=== PATIENT | male | born 1960 | race Asian ===

== ENCOUNTER → 2019-01-18 | Day surgery (SDC) | payer BC ==
[~2019-01-18] MED LIST: Dextrose 5%-0.45% NaCl 1,000 ML IV SCH; Midazolam 1 MG/ML 2 ML SDV IV ONE; Midazolam 1 MG/ML 2 ML SDV ONE; Sodium Chloride 0.9% 10 ML Syringe FLUSH PRN; fentaNYL 100 MCG/2 ML SDV IV ONE; fentaNYL 100 MCG/2 ML SDV ONE
--- NOTE | 2019-01-18 09:27 | OR ---
DATE: 01/18/2019 PROCEDURES: Esophagogastroduodenoscopy and multiple pinch biopsies. INSTRUMENT USED: GIF-HQ190 Olympus video panendoscope. PREMEDICATIONS: No oral or topical anesthesia used. Fentanyl 100 mcg intravenous, Versed 2 mg intravenous, nasal O2 cannula. The procedure was done under pulse oximetry, BP recording, and color television console monitor. INDICATION: The patient with persistent longstanding heartburn, dyspepsia, and upper abdominal pain, unexplained and not responsive to medical measures, on PPI. Esophagogastroduodenoscopy is performed for detection of any active erosive lesions, Ribeiro esophagus and/or malignancy also under consideration, H. Pylori status to be determined, endoscopic hemostasis therapy if needed. PROCEDURE IN DETAIL: The scope was passed with ease. Adequate visualization of the esophagus was made from proximal to distal areas. No upper esophageal lesions identified. No distal esophageal stricture. No uphill or downhill esophageal varices. No Maye-[place] tear. No evidence of erosive esophagitis by [place] criteria. No esophageal polyp or tumor mass identified. Z-line was seen at around 40 cm distal to the oral verge, configuration consistent with grade 1 by ZAP classification. No proximal gastric varices noted. Gastric fundus examination by retroflexion showed no malignant lesions. Diminutive benign-appearing gastric fundus polyps were noted. No gastric ulcer, malignant mass, or vascular ectasia identified. Duodenal bulb showed no ulcer. Visualized second part of the duodenum was unremarkable. Multiple pinch biopsies were taken from the gastric antrum and proximal body and sent for PyloriTek test for H. pylori, and if negative in an hour, the tissue is to be sent for histopathology. No bleeding was noted from any of the visualized areas at the completion of the examination. Photographs were taken of the duodenal bulb, gastric antrum, fundus, and distal esophagus. IMPRESSION: Diminutive gastric fundus polyps. The patient tolerated the procedure well. [facility] /[id number]
[2019-01-18 10:44] VITALS: BP 130/107; PULSE 79
== END ==
LOC: DL.ENDO 07:22
PROVIDERS: ATTEND Internal Medicine Gastroenterology
DX: K29.70 Gastritis, unspecified, without bleeding (principal); K31.7 Polyp of stomach and duodenum; K21.9 Gastro-esophageal reflux disease without esophagitis; I10 Essential (primary) hypertension; E78.5 Hyperlipidemia, unspecified; G47.33 Obstructive sleep apnea (adult) (pediatric); Z79.82 Long term (current) use of aspirin; Z79.899 Other long term (current) drug therapy
CPT/HCPCS: 43239; 87077; J2250; J3010; J7042

== ENCOUNTER 2019-02-11 07:31 | Day surgery (SDC) | payer BC ==
[~2019-02-11 07:31] MED LIST changes: -Dextrose 5%-0.45% NaCl 1,000 ML IV SCH; -Midazolam 1 MG/ML 2 ML SDV IV ONE; -Sodium Chloride 0.9% 10 ML Syringe FLUSH PRN; -fentaNYL 100 MCG/2 ML SDV IV ONE
[2019-02-11] MEDS ORDERED: Midazolam 1 MG/ML 2 ML SDV IV ONE ×5 (07:32→08:37)
[2019-02-11] MEDS ORDERED: fentaNYL 100 MCG/2 ML SDV IV ONE ×3 (07:32→08:33)
[2019-02-11] MEDS ORDERED: Dextrose 5%-0.45% NaCl 1,000 ML IV SCH (08:00)
[2019-02-11 10:41] VITALS: BP 120/82; PULSE 78
--- NOTE | 2019-02-11 13:49 | OR ---
DATE: 02/11/2019 PROCEDURE: Total colonoscopy. INSTRUMENT USED: PCF-H190DL Olympus video colonoscope. PREMEDICATIONS: Fentanyl 100 mcg intravenous, Versed 3 mg intravenous, nasal O2 cannula. The procedure was done under pulse oximetry, BP recording, and cardiac rehabilitation program director. INDICATION: The patient with abdominal pain and abnormal CT, suspected colonic lesions. Colonoscopic examination is done for detection of any polypoid lesions and removal, endoscopic hemostasis therapy if needed. PROCEDURE IN DETAIL: Initial rectal exam was unremarkable. Rigid anoscopy was normal. The colonoscope was passed with ease up to the ileocecal area. Photographs were taken of the normal-appearing cecum, identified by landmarks of appendiceal orifice and double-bulged ileocecal folds. No bleeding was noted from any of the visualized areas at the commencement of the examination. The bowel preparation was found to be adequate, [place] scale 3 in all the regions. No stricture. No vascular ectasia. No large isolated ulcerations seen. No evidence of diffuse inflammatory bowel disease in the form of friability, contact bleeding, or ulcerations. No polyp or tumor mass identified. Probing the proximal sides of folds and flexures using adequate distention and clearing up the stool material, withdrawal of the scope was made. Cecum to rectum time over 6 minutes. No bleeding was noted from any of the visualized areas at the completion of examination. IMPRESSION: Normal study. The patient tolerated the procedure well. [facility] /[id number]
== END 2019-02-11 10:45 | disposition home or self-care (01) ==
LOC: DL.ENDO 07:31
PROVIDERS: ATTEND Internal Medicine Gastroenterology
DX: R10.9 Unspecified abdominal pain (principal); I10 Essential (primary) hypertension; E78.5 Hyperlipidemia, unspecified; G47.33 Obstructive sleep apnea (adult) (pediatric); Z99.89 Dependence on other enabling machines and devices; Z79.899 Other long term (current) drug therapy; Z79.82 Long term (current) use of aspirin
CPT/HCPCS: 45378; J2250; J3010; J7042; G0121

== ENCOUNTER 2020-03-11 00:01 | Emergency (ER) | payer BC ==
[2020-03-11] MEDS ORDERED: Dexamethasone 4 MG/ML SDV IVPUSH ONE (00:06)
--- NOTE | 2020-03-11 00:09 | EDM.PDOC ---
ED HPI GENERAL MEDICAL PROBLEM - General Chief Complaint: Respiratory Problem Stated Complaint: SHORTNESS OF BREATH, COVID+ Feb Time Seen by Provider: 03/11/20 00:09 Source of Information: Reports: Patient History Limitations: Reports: No Limitations - History of Present Illness INITIAL COMMENTS - FREE TEXT/NARRATIVE: pos covid , been coughing on-off, got robitussin today and did help cough a little. but still has chest discomfort. - Related Data Allergies Allergy/AdvReac Type Severity Reaction Status Date / Time seasonal Allergy Sneezing Uncoded 03/11/20 00:12 Home Meds: Home Meds Losartan Potassium 50 mg PO DAILY 05/05/16 [History] Ascorbate Calcium [Vitamin C] 500 mg PO DAILY 01/14/19 [History] Aspirin [Halfprin] 81 mg PO DAILY 01/14/19 [History] Fish Oil/[place]-3 Fatty Acids [Fish Oil 1,000 MG] 1 each PO DAILY 01/14/19 [History] Montelukast [Singulair] 10 mg PO DAILY 01/14/19 [History] Omeprazole 20 mg PO BID 01/14/19 [History] Simvastatin [Zocor] 40 mg PO BEDTIME 01/14/19 [History] Terbinafine [LamISIL] 250 mg PO DAILY 01/14/19 [History] Ascorbic Acid [Vitamin C] 500 mg PO ASDIRECTED PRN 02/10/19 [History] Past Medical History HEENT History: Reports: Allergic Rhinitis Cardiovascular History: Reports: High Cholesterol, Hypertension Respiratory History: Reports: Sleep Apnea Gastrointestinal History: Genitourinary History: Reports: None Musculoskeletal History: Reports: Other (See Below) Other Musculoskeletal History: lateral epicondylitis of right elbow. degenerative disc disease, lumbar. herniated nucleus pulposus, lumbar Neurological History: Reports: None Psychiatric History: Reports: None Endocrine/Metabolic History: Reports: None Hematologic History: Reports: None Immunologic History: Reports: None Oncologic (Cancer) History: Reports: None Dermatologic History: Reports: None - Infectious Disease History Infectious Disease History: Reports: None - Past Surgical History Head Surgeries/Procedures: Reports: None HEENT Surgical History: Reports: None Respiratory Surgical History: Reports: None GI Surgical History: Reports: Colonoscopy Endocrine Surgical History: Reports: None Neurological Surgical History: Reports: Laminectomy, Lumbar Spine Musculoskeletal Surgical History: Reports: Carpal Tunnel, Ganglion Cyst, Other (See Below) Other Musculoskeletal Surgeries/Procedures:: spine lumbar laminectomy - L4/5 for decompression for 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 left carpal tunnel release. joint injection/aspiration. cyst removal. electromyography of extremities Dermatological Surgical History: Reports: None Social & Family History - Family History Family Medical History: Noncontributory - Caffeine Use Caffeine Use: Reports: Coffee Caffeine Use Comment: 2 CUPS DAILY ED ROS GENERAL - Review of Systems Review Of Systems: Comprehensive ROS is negative, except as noted in HPI. ED EXAM, GENERAL - Physical Exam Exam: See Below Exam Limited By: No Limitations General Appearance: Alert, WD/WN, Mild Distress, Other (discomfort) Ears: Hearing Grossly Normal Throat/Mouth: Normal Voice, No Airway Compromise Head: Atraumatic Neck: Non-Tender, Full Range of Motion Respiratory/Chest: Rhonchi Cardiovascular: Regular Rate, Rhythm GI/Abdominal: Soft, Non-Tender (Male) Exam: Deferred Rectal (Males) Exam: Deferred Neurological: Alert, Oriented, Normal Cognition, Normal Gait, No Motor/Sensory Deficits Psychiatric: Normal Affect, Normal Mood Skin Exam: Warm, Dry, Normal Color Lymphatic: No Adenopathy Course - Vital Signs Last Recorded V/S: Last Vital Signs Temp 36.9 C 03/11/20 00:11 Pulse 98 03/11/20 00:11 Resp 18 03/11/20 00:11 BP 161/93 H 03/11/20 00:11 Pulse Ox 95 03/11/20 00:11 - Orders/Labs/Meds Orders: Active Orders 24 hr Category Date Time Status Sodium Chloride 0.9% [Normal Saline] 1,000 ml Med 03/11/20 00:15 Active IV ASDIRECTED Medication Orders Sodium Chloride (Normal Saline) 1,000 mls @ 150 mls/hr IV ASDIRECTED MARY KAY Last Admin: 03/11/20 00:40 Dose: 150 mls/hr Documented by: LAURA Labs: Laboratory Tests 03/11/20 03/11/20 03/11/20 Range/Units 00:20 00:20 00:20 WBC 5.0 (5.0-10.0) 10^3/uL RBC 4.66 (4.6-6.2) 10^6/uL Hgb 14.3 (14.0-18.0) g/dL Hct 39.8 L (40.0-54.0) % MCV 85.4 (80-100) fL MCH 30.7 (27.0-34.0) pg MCHC 35.9 H (33.0-35.0) g/dL Plt Count 121 L (150-450) 10^3/uL Neut % (Auto) 58.4 (42.2-75.2) % Lymph % (Auto) 23.9 (20.5-50.1) % [place] % (Auto) 17.1 H (2-8) % Eos % (Auto) 0.4 L (1.0-3.0) % Baso % (Auto) 0.2 (0.0-1.0) % Sodium 136 (136-145) mmol/L Potassium 3.4 L (3.5-5.1) mmol/L Chloride 99 (98-107) mmol/L Carbon Dioxide 27 (21-32) mmol/L Anion Gap 13.4 H (7-13) mEq/L BUN 9 (7-18) mg/dL Creatinine 0.62 L (0.70-1.30) mg/dL Est Cr Clr Drug Dosing 122.90 mL/min Estimated GFR (MDRD) > 60 BUN/Creatinine Ratio 14.5 (No establ ref range) Glucose 113 H (74-99) mg/dL Lactic Acid 0.5 (0.4-2.0) mmol/L Calcium 8.1 L (8.5-10.1) mg/dL Total Bilirubin 0.6 (0.2-1.0) mg/dL AST 25 (15-37) U/L ALT 35 (16-63) U/L Alkaline Phosphatase 67 (46-116) U/L Troponin I (0.000-0.056) ng/mL Total Protein 6.8 (6.4-8.2) g/dL Albumin 3.5 (3.4-5.0) g/dL Globulin 3.3 Albumin/Globulin Ratio 1.1 03/11/20 Range/Units 00:20 WBC (5.0-10.0) 10^3/uL RBC (4.6-6.2) 10^6/uL Hgb (14.0-18.0) g/dL Hct (40.0-54.0) % MCV (80-100) fL MCH (27.0-34.0) pg MCHC (33.0-35.0) g/dL Plt Count (150-450) 10^3/uL Neut % (Auto) (42.2-75.2) % Lymph % (Auto) (20.5-50.1) % [place] % (Auto) (2-8) % Eos % (Auto) (1.0-3.0) % Baso % (Auto) (0.0-1.0) % Sodium (136-145) mmol/L Potassium (3.5-5.1) mmol/L Chloride (98-107) mmol/L Carbon Dioxide (21-32) mmol/L Anion Gap (7-13) mEq/L BUN (7-18) mg/dL Creatinine (0.70-1.30) mg/dL Est Cr Clr Drug Dosing mL/min Estimated GFR (MDRD) BUN/Creatinine Ratio (No establ ref range) Glucose (74-99) mg/dL Lactic Acid (0.4-2.0) mmol/L Calcium (8.5-10.1) mg/dL Total Bilirubin (0.2-1.0) mg/dL AST (15-37) U/L ALT (16-63) U/L Alkaline Phosphatase (46-116) U/L Troponin I < 0.017 (0.000-0.056) ng/mL Total Protein (6.4-8.2) g/dL Albumin (3.4-5.0) g/dL Globulin Albumin/Globulin Ratio Meds: Medications Generic Name Dose Route Start Last Admin Trade Name Freq PRN Reason Stop Dose Admin Sodium Chloride 1,000 mls @ 150 mls/hr 03/11/20 00:15 03/11/20 00:40 Normal Saline IV 150 mls/hr ASDIRECTED MARY KAY Administration Discontinued Medications Generic Name Dose Route Start Last Admin Trade Name Freq PRN Reason Stop Dose Admin Dexamethasone 12 mg 03/11/20 00:06 03/11/20 00:40 Dexamethasone IVPUSH 03/11/20 00:07 12 mg ONETIME ONE Administration - Re-Assessments/Exams Free Text/Narrative Re-Assessment/Exam: 03/11/20 02:06 results discussed with pt's daughter who relayed instruction to pt. Departure - Departure Time of Disposition: 02:07 Disposition: Home, Self-Care 01 Condition: Good Clinical Impression: Pneumonia due to 2019 novel coronavirus - Discharge Information Instructions: COVID-19: How to Protect Yourself and Others - [facility] Forms: ED Department Discharge Additional Instructions: 1) rest and sleep as much as possible 2) avoid the cold and stay indoors 3) take tylenol or motrin for body aches 4) drink lots of liquids 5) return if has high fever more than 101.5, chest pains, unable to breath rx given; medrol dospak Sepsis Event Note (ED) - Focused Exam Vital Signs: Vital Signs Temp Pulse Resp BP Pulse Ox 03/11/20 00:11 36.9 C 98 18 161/93 H 95 - My Orders Last 24 Hours: My Active Orders 03/11/20 00:15 Sodium Chloride 0.9% [Normal Saline] 1,000 ml IV ASDIRECTED - Assessment/Plan Last 24 Hours: My Active Orders 03/11/20 00:15 Sodium Chloride 0.9% [Normal Saline] 1,000 ml IV ASDIRECTED
[2020-03-11 00:13] VITALS: BP 161/93; PULSE 98
[2020-03-11] MEDS ORDERED: Sodium Chloride 0.9% 1,000 ML IV SCH (00:15)
[2020-03-11 00:53] LABS: ANION GAP 13.4 mEq/L (7-13); CHLORIDE,CL 99 mmol/L (98-107); SODIUM,NA 136 mmol/L (136-145)
--- NOTE | 2020-03-11 01:26 | CT ---
PROCEDURE INFORMATION: Exam: CT Chest Without Contrast Exam date and time: 03/11/2020 12:52 AM Age: 59 years old Clinical indication: Cough; Additional info: R/O covid pneumonia TECHNIQUE: Imaging protocol: Computed tomography of the chest without contrast. Radiation optimization: All CT scans at this facility use at least one of these dose optimization techniques: automated exposure control; mA and/or kV adjustment per patient size (includes targeted exams where dose is matched to clinical indication); or iterative reconstruction. COMPARISON: No relevant prior studies available. FINDINGS: Lungs: There are scattered rounded multifocal ground-glass opacities, subpleural in location some of which are confluent in the dependent lungs right greater than left, more prominent in the lower lobes consistent with multifocal pneumonia, either bacterial or viral including COVID-19 pneumonia. Pleural space: Unremarkable. No pneumothorax. No pleural effusion. Heart: Unremarkable. No cardiomegaly. No pericardial effusion. Aorta: Unremarkable. No aortic aneurysm. Lymph nodes: Few scattered 5 to 8 mm aortopulmonary window lymph nodes and precarinal lymph nodes. Bones/joints: Multilevel degenerative disc disease involving the included thoracolumbar spine. Soft tissues: Chest wall soft tissues are unremarkable. IMPRESSION: 1. Multifocal rounded ground-glass opacities in a subpleural location more numerous in the lower lobes than the upper lobes and confluent peripherally in the lower lobes, right greater than left consistent with multifocal pneumonia either bacterial or viral including COVID-19 pneumonia. 2. Few scattered nonspecific 5-8 mm mediastinal lymph nodes.
== END 2020-03-11 02:15 | disposition home or self-care (01) ==
LOC: DL.ED 00:01
DX: U07.1 COVID-19 (principal); J12.89 Other viral pneumonia; E78.00 Pure hypercholesterolemia, unspecified; I10 Essential (primary) hypertension; Z91.048 Other nonmedicinal substance allergy status; Z79.82 Long term (current) use of aspirin; Z79.899 Other long term (current) drug therapy
CPT/HCPCS: 36415; 71250; 80053; 83605; 84484; 85025; 96374; 99285; J1100; J7030; 99283